=== PATIENT | female | born 1945 | race Caucasian/White ===

== ENCOUNTER 2018-05-26 13:06 | Outpatient (REF) | payer MEDICARE, MEDICAID, SELFPAY ==
[2018-05-26 20:35] LABS: Abs Immature Grans 0.02 k/cumm (0.0-0.09); Absolute Basophil Count 0.05 k/cumm (0.0-0.2); Absolute Eosinophil Count 0.09 k/cumm (0.0-0.7); Absolute Lymphocyte Count 1.94 k/cumm (1.2-3.4); Absolute Monocyte Count 0.74 k/cumm (0.11-0.7); Absolute Neutrophil Count 5.74 k/cumm (1.2-6.7); Basophils % 0.6; HCT 35.9 % (36.0-46.0); HGB 11.4 g/dL (12.0-15.5); Immature Grans % 0.2; Lymphocytes % 22.6; Mean Corp. HGB Concentration 31.8 g/dL (32.0-36.0); Mean Platelet Volume 11.7 fL (8.0-11.0); Monocytes % 8.6; Platelet Count 260 x1000/uL (130-400); RBC 4.38 m/cumm (4.00-5.20); RBC Distribution Width 14.7 % (11.7-14.6); White Blood Cell Count 8.58 k/cumm (4.4-10.8)
[2018-05-26 20:46] LABS: ALT 21 U/L (12-78); AST 17 U/L (15-37); Albumin 3.4 g/dL (3.4-5.0); Alkaline Phosphatase 89 U/L (46-116); Anion Gap 4.8 mmol/L (3-11); BUN 13 mg/dL (7-18); Bilirubin, Total 0.2 mg/dL (0.2-1.0); C-Reactive Protein 0.05 mg/dL (0.0-0.3); CO2 29.2 mmol/L (21.0-32.0); CREATININE 0.62 mg/dL (0.55-1.02); Chloride 103 mmol/L (98-107); Glucose 82 mg/dL (70-100); Potassium 4.2 mmol/L (3.5-5.1); Sodium 137 mmol/L (136-145); Total Protein 6.6 g/dL (6.4-8.2)
[2018-05-26 22:25] LABS: ESR 18 MM/HR (0-30)
== END 2018-05-26 13:07 ==
LOC: NCHCN 13:06
PROVIDERS: PCP Nurse Practitioner Family; Visit Provider Family Medicine
DX: R50.9 Fever, unspecified (principal); E83.52 Hypercalcemia; Q21.3 Tetralogy of Fallot; R53.83 Other fatigue; Z86.79 Personal history of other diseases of the circulatory system
CPT/HCPCS: 80053; 85652; 85025; 86140

== ENCOUNTER 2018-08-29 20:54 | Outpatient (REF) | payer MEDICARE, MEDICAID, SELFPAY ==
[2018-08-29 22:02] LABS: HCT 36.3 % (36.0-46.0); Mean Corp. HGB Concentration 33.1 g/dL (32.0-36.0); Mean Corpuscular Hemoglobin 26.8 pg (27.0-33.0); Mean Corpuscular Volume 81.2 fL (80-95); Mean Platelet Volume 11.3 fL (8.0-11.0); Platelet Count 265 x1000/uL (130-400); RBC 4.47 m/cumm (4.00-5.20); RBC Distribution Width 14.6 % (11.7-14.6); White Blood Cell Count 8.42 k/cumm (4.4-10.8)
[2018-08-29 22:04] LABS: Anion Gap 6.6 mmol/L (3-11); BUN 18 mg/dL (7-18); CO2 30.4 mmol/L (21.0-32.0); CREATININE 0.69 mg/dL (0.55-1.02); Calcium 11.4 mg/dL (8.5-10.1); Chloride 100 mmol/L (98-107); Glucose 84 mg/dL (70-100); Potassium 3.9 mmol/L (3.5-5.1); Sodium 137 mmol/L (136-145)
== END 2018-08-29 21:14 ==
LOC: NCHCN 20:54
PROVIDERS: PCP Nurse Practitioner Family; Visit Provider Family Medicine
DX: E21.3 Hyperparathyroidism, unspecified (principal); E83.52 Hypercalcemia; D50.9 Iron deficiency anemia, unspecified
CPT/HCPCS: 80048; 85027

== ENCOUNTER 2018-11-16 16:53 | Outpatient (REF) | payer MEDICARE, MEDICAID, SELFPAY ==
[2018-11-16 21:45] LABS: HGB 10.8 g/dL (12.0-15.5); Mean Corp. HGB Concentration 32.7 g/dL (32.0-36.0); Mean Corpuscular Volume 82.5 fL (80-95); Mean Platelet Volume 11.5 fL (8.0-11.0); Platelet Count 238 x1000/uL (130-400); RBC Distribution Width 14.9 % (11.7-14.6); White Blood Cell Count 8.54 k/cumm (4.4-10.8)
[2018-11-16 22:07] LABS: ALT 38 U/L (12-78); AST 18 U/L (15-37); Albumin 3.2 g/dL (3.4-5.0); Alkaline Phosphatase 78 U/L (46-116); Anion Gap 3.8 mmol/L (3-11); BUN 18 mg/dL (7-18); Bilirubin, Total 0.2 mg/dL (0.2-1.0); CO2 32.2 mmol/L (21.0-32.0); CREATININE 0.57 mg/dL (0.55-1.02); Calcium 10.9 mg/dL (8.5-10.1); Chloride 97 mmol/L (98-107); Glucose 88 mg/dL (70-100); Magnesium 1.9 mg/dL (1.8-2.4); Potassium 3.8 mmol/L (3.5-5.1); Sodium 133 mmol/L (136-145); TSH (W/Ref FT4) 1.08 uIU/mL (0.358-3.74); Total Protein 6.3 g/dL (6.4-8.2)
== END 2018-11-16 17:13 ==
LOC: NCHCN 16:53
PROVIDERS: PCP Nurse Practitioner Family; Visit Provider Family Medicine
DX: I49.9 Cardiac arrhythmia, unspecified (principal); R10.9 Unspecified abdominal pain; E21.3 Hyperparathyroidism, unspecified; I10 Essential (primary) hypertension
CPT/HCPCS: 80053; 85027; 83735; 84443

== ENCOUNTER 2018-11-29 18:06 | Outpatient (REF) | payer MEDICARE, MEDICAID, SELFPAY ==
[2018-11-29 22:22] LABS: HCT 32.8 % (36.0-46.0); HGB 10.7 g/dL (12.0-15.5); Mean Corp. HGB Concentration 32.6 g/dL (32.0-36.0); Mean Corpuscular Hemoglobin 26.3 pg (27.0-33.0); Mean Corpuscular Volume 80.6 fL (80-95); Mean Platelet Volume 10.9 fL (8.0-11.0); Platelet Count 259 x1000/uL (130-400); RBC 4.07 m/cumm (4.00-5.20); RBC Distribution Width 14.3 % (11.7-14.6); Reticulocyte 1.7 % (0.5-2.4); White Blood Cell Count 9.62 k/cumm (4.4-10.8)
[2018-11-29 22:56] LABS: Ferritin 15 ng/mL (8-388); Vitamin B12 1450 pg/mL (193-986)
[2018-11-29 23:10] LABS: Iron 31 ug/dL (50-175); Total Iron Binding Capacity 392 ug/dL (250-450); Transferrin Sat 8 % (15-50)
[2018-11-30 06:42] LABS: Vitamin D 25 Total 39.8 ng/ml (30-100)
== END 2018-11-29 18:26 ==
LOC: NCHCN 18:06
PROVIDERS: PCP Nurse Practitioner Family; Visit Provider Family Medicine
DX: D50.9 Iron deficiency anemia, unspecified (principal); E55.9 Vitamin D deficiency, unspecified; E53.8 Deficiency of other specified B group vitamins
CPT/HCPCS: 82306; 85027; 82607; 82728; 83540; 83550; 85045

== ENCOUNTER 2019-02-06 12:09 | Outpatient (REF) | payer MEDICARE, MEDICAID, SELFPAY ==
[2019-02-06 21:53] LABS: HCT 37.2 % (36.0-46.0); Mean Corp. HGB Concentration 32.3 g/dL (32.0-36.0); Mean Corpuscular Hemoglobin 26.8 pg (27.0-33.0); Mean Platelet Volume 12.3 fL (8.0-11.0); Platelet Count 244 x1000/uL (130-400); RBC 4.48 m/cumm (4.00-5.20); RBC Distribution Width 15.7 % (11.7-14.6); White Blood Cell Count 7.89 k/cumm (4.4-10.8)
[2019-02-06 21:58] LABS: Iron 37 ug/dL (50-175); Total Iron Binding Capacity 369 ug/dL (250-450); Transferrin Sat 10 % (15-50)
[2019-02-06 22:06] LABS: Anion Gap 6.4 mmol/L (3-11); BUN 15 mg/dL (7-18); CO2 31.6 mmol/L (21.0-32.0); Calcium 11.2 mg/dL (8.5-10.1); Chloride 102 mmol/L (98-107); Ferritin 23 ng/mL (8-388); Glucose 79 mg/dL (70-100); Potassium 3.9 mmol/L (3.5-5.1); Sodium 140 mmol/L (136-145)
[2019-02-08 05:10] LABS: Vitamin D 25 Total 46.7 ng/ml (30-100)
[2019-02-08 10:06] LABS: Parathyroid Hormone,Intact 107 pg/ml (19-88)
== END 2019-02-06 12:29 ==
LOC: NCHCN 12:09
PROVIDERS: PCP Nurse Practitioner Family; Visit Provider Family Medicine
DX: D50.9 Iron deficiency anemia, unspecified (principal); E55.9 Vitamin D deficiency, unspecified; I10 Essential (primary) hypertension; E21.3 Hyperparathyroidism, unspecified
CPT/HCPCS: 80048; 82306; 85027; 82728; 83540; 83550; 83970

== ENCOUNTER 2019-02-13 13:00 | Outpatient (REF) | payer MEDICARE, MEDICAID, SELFPAY ==
[2019-02-13 22:19] LABS: Anion Gap 4.3 mmol/L (3-11); BUN 14 mg/dL (7-18); CO2 31.7 mmol/L (21.0-32.0); Calcium 11.2 mg/dL (8.5-10.1); Chloride 102 mmol/L (98-107); Glucose 83 mg/dL (70-100); Potassium 3.9 mmol/L (3.5-5.1); Sodium 138 mmol/L (136-145)
== END 2019-02-13 13:20 ==
LOC: NCHCN 13:00
PROVIDERS: PCP Nurse Practitioner Family; Visit Provider Family Medicine
DX: I10 Essential (primary) hypertension (principal)
CPT/HCPCS: 80048

== ENCOUNTER 2019-03-06 15:12 | Outpatient (REF) | payer MEDICARE, MEDICAID, SELFPAY ==
[2019-03-06 22:21] LABS: Anion Gap 5.5 mmol/L (3-11); BUN 11 mg/dL (7-18); CO2 30.5 mmol/L (21.0-32.0); CREATININE 0.61 mg/dL (0.55-1.02); Calcium 11.4 mg/dL (8.5-10.1); Chloride 102 mmol/L (98-107); Glucose 103 mg/dL (70-100); Sodium 138 mmol/L (136-145)
[2019-03-08 09:56] LABS: Prolactin 20.1 ng/ml
== END 2019-03-06 15:32 ==
LOC: NCHCN 15:12
PROVIDERS: PCP Nurse Practitioner Family; Visit Provider Family Medicine
DX: D35.2 Benign neoplasm of pituitary gland (principal); E83.52 Hypercalcemia; R42 Dizziness and giddiness
CPT/HCPCS: 80048; 84146

== ENCOUNTER 2019-04-25 14:54 | Outpatient (REF) | payer MEDICARE, MEDICAID, SELFPAY ==
[2019-04-25 21:50] LABS: Anion Gap 8.1 mmol/L (3-11); BUN 15 mg/dL (7-18); CO2 28.9 mmol/L (21.0-32.0); CREATININE 0.64 mg/dL (0.55-1.02); Calcium 10.7 mg/dL (8.5-10.1); Chloride 102 mmol/L (98-107); Glucose 96 mg/dL (70-100); Potassium 3.4 mmol/L (3.5-5.1); Sodium 139 mmol/L (136-145)
[2019-04-27 10:12] LABS: Parathyroid Hormone,Intact 125 pg/ml (19-88)
== END 2019-04-25 15:14 ==
LOC: NCHCN 14:54
PROVIDERS: PCP Nurse Practitioner Family; Visit Provider Family Medicine
DX: I10 Essential (primary) hypertension (principal); E21.3 Hyperparathyroidism, unspecified; E83.52 Hypercalcemia
CPT/HCPCS: 80048; 83970

== ENCOUNTER 2019-05-08 10:27 | Outpatient (REF) | payer MEDICARE, MEDICAID, SELFPAY ==
[2019-05-08 20:45] LABS: Potassium 4.9 mmol/L (3.5-5.1)
== END 2019-05-08 10:47 ==
LOC: NCHCN 10:27
PROVIDERS: PCP Nurse Practitioner Family; Visit Provider Family Medicine
DX: I10 Essential (primary) hypertension (principal)
CPT/HCPCS: 84132

== ENCOUNTER 2019-07-27 14:34 | Outpatient (REF) | payer MEDICARE, MEDICAID, SELFPAY ==
[2019-07-27 21:26] LABS: ALT 22 U/L (14-59); AST 14 U/L (15-37); Albumin 3.4 g/dL (3.4-5.0); Alkaline Phosphatase 101 U/L (46-116); Anion Gap 5.8 mmol/L (3-11); BUN 14 mg/dL (7-18); Bilirubin, Total 0.2 mg/dL (0.2-1.0); CO2 31.2 mmol/L (21.0-32.0); CREATININE 0.67 mg/dL (0.55-1.02); Calcium 10.8 mg/dL (8.5-10.1); Chloride 102 mmol/L (98-107); Glucose 116 mg/dL (70-100); Potassium 3.8 mmol/L (3.5-5.1); Sodium 139 mmol/L (136-145); Total Protein 6.5 g/dL (6.4-8.2)
[2019-07-30 13:54] LABS: Parathyroid Hormone,Intact 194 pg/ml (19-88)
== END 2019-07-27 14:54 ==
LOC: NCHCN 14:34
PROVIDERS: PCP Nurse Practitioner Family; Visit Provider Family Medicine
DX: I10 Essential (primary) hypertension (principal); E21.3 Hyperparathyroidism, unspecified; E88.09 Other disorders of plasma-protein metabolism, not elsewhere classified
CPT/HCPCS: 80053; 83970

== ENCOUNTER 2020-01-18 21:07 | Outpatient (REF) | payer MEDICARE, MEDICAID, SELFPAY ==
[2020-01-18 21:22] LABS: Anion Gap 6.3 mmol/L (3-11); BUN 12 mg/dL (7-18); CO2 29.7 mmol/L (21.0-32.0); CREATININE 0.78 mg/dL (0.55-1.02); Calcium 9.8 mg/dL (8.5-10.1); Chloride 100 mmol/L (98-107); Glucose 94 mg/dL (74-106); Potassium 3.6 mmol/L (3.5-5.1); Sodium 136 mmol/L (136-145)
[2020-01-21 05:59] LABS: Vitamin D 25 Total 38.2 ng/ml (30-100)
[2020-01-21 11:02] LABS: Parathyroid Hormone,Intact 53 pg/mL (19-88)
== END 2020-01-18 21:27 ==
LOC: NCHCN 21:07
PROVIDERS: PCP Family Medicine; Visit Provider Family Medicine
DX: I10 Essential (primary) hypertension (principal); E83.52 Hypercalcemia; E21.3 Hyperparathyroidism, unspecified; R42 Dizziness and giddiness; H61.22 Impacted cerumen, left ear
CPT/HCPCS: 80048; 82306; 83970

== ENCOUNTER 2020-03-31 14:50 | Outpatient (REF) | payer MEDICARE, MEDICAID, SELFPAY ==
[2020-03-31 22:45] LABS: HCT 34.3 % (36.0-46.0); HGB 11.1 g/dL (12.0-15.5); Mean Corp. HGB Concentration 32.4 g/dL (32.0-36.0); Mean Corpuscular Hemoglobin 27.4 pg (27.0-33.0); Mean Corpuscular Volume 84.7 fL (80-95); Mean Platelet Volume 11.6 fL (8.0-11.0); Platelet Count 209 x1000/uL (130-400); RBC 4.05 m/cumm (4.00-5.20); RBC Distribution Width 14.1 % (11.7-14.6); White Blood Cell Count 7.47 k/cumm (4.4-10.8)
[2020-03-31 22:56] LABS: Iron 44 ug/dL (50-170); Total Iron Binding Capacity 286 ug/dL (250-450); Transferrin Sat 15 % (15-50)
[2020-03-31 23:06] LABS: BUN 15 mg/dL (7-18); CREATININE 0.68 mg/dL (0.55-1.02); Ferritin 38 ng/mL (8-252); TSH (W/Ref FT4) 0.83 uIU/mL (0.36-3.74)
[2020-04-01 17:21] LABS: C-Reactive Protein 0.06 mg/dL (0.0-0.3)
== END 2020-03-31 15:10 ==
LOC: NCHCN 14:50
PROVIDERS: PCP Family Medicine; Visit Provider Family Medicine
DX: D50.9 Iron deficiency anemia, unspecified (principal); R53.83 Other fatigue; R42 Dizziness and giddiness; R10.9 Unspecified abdominal pain; I10 Essential (primary) hypertension
CPT/HCPCS: 84520; 85027; 82565; 82728; 83540; 83550; 84443; 86140

== ENCOUNTER 2020-07-17 21:32 | Outpatient (REF) | payer MEDICARE, MEDICAID, SELFPAY ==
[2020-07-17 21:12] LABS: HCT 33.6 % (36.0-46.0); HGB 10.7 g/dL (11.2-15.7); MCH 27.9 pg (27.0-33.0); MCHC 31.8 % (32.0-36.0); MCV 87.5 fL (80-95); MPV 11.2 fL (8.0-11.0); Platelet Count 196 10^3/uL (130-400); RBC 3.84 10^6/uL (3.93-5.22); RDW 14.2 % (11.7-14.6); RDW-SD 45.6 fL; WBC 6.78 10^3/uL (4.4-10.8)
[2020-07-17 21:24] LABS: Iron 69 ug/dL (50-170)
[2020-07-17 21:50] LABS: ALT 13 U/L (14-59); AST 11 U/L (15-37); Albumin 3.1 g/dL (3.4-5.0); Alkaline Phosphatase 68 U/L (46-116); BUN 16 mg/dL (7-18); Bilirubin, Total 0.3 mg/dL (0.2-1.0); Calcium 10.8 mg/dL (8.5-10.1); Chloride 103 mmol/L (98-107); Ferritin 33 ng/mL (8-252); Folate 8.5 ng/mL (8.6-20.0); Glucose 94 mg/dL (74-106); Potassium 3.5 mmol/L (3.5-5.1); Sodium 138 mmol/L (136-145); TSH (W/Ref FT4) 0.61 uIU/mL (0.36-3.74); Vitamin B12 1770 pg/mL (193-986)
[2020-07-21 10:04] LABS: Lyme Ab w Rflx to Lyme Confirm Negative (Negative)
== END 2020-07-17 21:52 ==
LOC: NCHCN 21:32
PROVIDERS: PCP Family Medicine; Visit Provider Family Medicine
DX: E21.3 Hyperparathyroidism, unspecified (principal); I10 Essential (primary) hypertension; E88.09 Other disorders of plasma-protein metabolism, not elsewhere classified; E83.52 Hypercalcemia; R42 Dizziness and giddiness
CPT/HCPCS: 80053; 85027; 82607; 82728; 82746; 83540; 84443; 86618

== ENCOUNTER 2020-08-14 13:37 | Outpatient (REF) | payer MEDICARE, MEDICAID, SELFPAY ==
[2020-08-14 21:31] LABS: Anion Gap 4.1 mmol/L (3-11); BUN 17 mg/dL (7-18); CO2 31.9 mmol/L (21.0-32.0); CREATININE 0.76 mg/dL (0.55-1.02); Calcium 11.1 mg/dL (8.5-10.1); Chloride 101 mmol/L (98-107); Glucose 74 mg/dL (74-106); PHOSPHORUS 3.7 mg/dL (2.6-4.7); Potassium 4.3 mmol/L (3.5-5.1); Sodium 137 mmol/L (136-145)
[2020-08-28 16:24] LABS: Parathyroid Hormone,Intact 66 pg/mL (15-65)
== END 2020-08-14 13:57 ==
LOC: NCHCN 13:37
PROVIDERS: PCP Family Medicine; Visit Provider Family Medicine
DX: E83.52 Hypercalcemia; Z99.2 Dependence on renal dialysis
CPT/HCPCS: 80048; 83970; 84100

== ENCOUNTER 2020-09-08 21:08 | Outpatient (REF) | payer MEDICARE, MEDICAID, SELFPAY ==
[2020-09-08 21:44] LABS: Anion Gap 1.5 mmol/L (3-11); BUN 19 mg/dL (7-18); CO2 35.5 mmol/L (21.0-32.0); CREATININE 0.79 mg/dL (0.55-1.02); Calcium 10.8 mg/dL (8.5-10.1); Chloride 101 mmol/L (98-107); Glucose 82 mg/dL (74-106); Potassium 3.9 mmol/L (3.5-5.1); Sodium 138 mmol/L (136-145)
--- NOTE | 2020-09-22 13:06 | NS.NUTBLAN_ITS ---
Date of service: 09/22/20 Time of Service: 13:06 Nutritional Consult ASSESSMENT: Received nutritional consult to treat and evaluate bacterial overgrowth syndrome and abdominal distension with constipation. Ms. Quintero is unwilling to come to office, therefore, we spoke on the phone as she was unable to do tele health visit. Ms. Quintero reports weight stability but continue to have abdominal distension with constipation. She takes metamucil daily as prescribed and reports no constipation. She follows a vegetarian diet and has done so for many years. Medical chart indicates duodenal diverticulum. This is second time I have had pleasure of talking/consulting with Ms. Quintero. She reports she is 4'1 at 95 lbs. BMI wnl. NUTRITIONAL DIAGNOSIS: Bacterial over growth syndrome, with abdominal distension and constipation. INTERVENTION: Educated Ms. Quintero on importance of removing insoluable fiber in her diet and replace with soluble fiber. She is agreeable to stop eating beans and to replace this with tofu or tempeh. We also discussed importance of probiotics, especially eating 2 yogurts daily along with metamucil. Ms. Quintero reports her distention has become worse with increased anxiety with covid pandemic. We also discussed importance of stress reducing activities such as deep breathing, walking and talking to friends/family. I encouraged Ms. Quintero to talk to her PCP about her anxiety and discuss how it may affect her digestion. At this time, I believe the digestive issues are related to her high insoluable fiber diet and increased anxiety. A reduction in insoluable fiber and an increase in stress relieving activities may help improve digestions. Since her weight remains stable, I do not think she is at nutritional risk at this time. MONITORING AND EVALUATION: Ms. Quintero will weigh herself weekly and follow up with sign writer letterer or painter if loses more than 3 lbs Ms. Quintero will follow up with sign writer letterer or painter if she needs additional information/guidance Time Spent in Nutritional Counseling and Treatment: 20 min
== END 2020-09-08 21:28 ==
LOC: NCHCN 21:08
PROVIDERS: PCP Family Medicine; Visit Provider Family Medicine
DX: I10 Essential (primary) hypertension (principal)
CPT/HCPCS: 80048

== ENCOUNTER 2020-11-11 16:06 | Outpatient (REF) | payer MEDICARE, MEDICAID, SELFPAY ==
[2020-11-11 21:48] LABS: HCT 29.4 % (36.0-46.0); HGB 9.5 g/dL (11.2-15.7); MCH 29.4 pg (27.0-33.0); MCHC 32.3 % (32.0-36.0); MPV 11.6 fL (8.0-11.0); Platelet Count 198 10^3/uL (130-400); RBC 3.23 10^6/uL (3.93-5.22); RDW 13.2 % (11.7-14.6); WBC 8.27 10^3/uL (4.4-10.8)
[2020-11-11 22:17] LABS: ALT 19 U/L (14-59); AST 13 U/L (15-37); Albumin 3.3 g/dL (3.4-5.0); Alkaline Phosphatase 76 U/L (46-116); Anion Gap -0.6 mmol/L (3-11); BUN 17 mg/dL (7-18); Bilirubin, Total 0.2 mg/dL (0.2-1.0); CO2 34.6 mmol/L (21.0-32.0); CREATININE 0.8 mg/dL (0.55-1.02); Calcium 10.5 mg/dL (8.5-10.1); Chloride 101 mmol/L (98-107); Ferritin 32 ng/mL (8-252); Glucose 101 mg/dL (74-106); Potassium 4.1 mmol/L (3.5-5.1); Sodium 135 mmol/L (136-145); Total Protein 6.2 g/dL (6.4-8.2)
[2020-11-11 22:32] LABS: Folate > 20.0 ng/mL (8.6-20.0)
[2020-11-13 09:29] LABS: Parathyroid Hormone,Intact 107 pg/mL (19-88)
== END 2020-11-11 16:07 | disposition home or self-care (01) ==
LOC: NCHCN 16:06
PROVIDERS: PCP Family Medicine; Visit Provider Family Medicine
DX: D50.9 Iron deficiency anemia, unspecified (principal); I10 Essential (primary) hypertension; E83.52 Hypercalcemia; E21.3 Hyperparathyroidism, unspecified; D52.9 Folate deficiency anemia, unspecified; E88.09 Other disorders of plasma-protein metabolism, not elsewhere classified
CPT/HCPCS: 80053; 85027; 82728; 82746; 83970

== ENCOUNTER 2020-12-04 20:52 | Outpatient (REF) | payer MEDICARE, MEDICAID, SELFPAY ==
[2020-12-04 21:44] LABS: Abs Immature Grans 0.03 10^3/uL (0.0-0.06); Absolute Basophil Count 0.07 10^3/uL (0.0-0.2); Absolute Lymphocyte Count 1.56 10^3/uL (1.2-3.4); Absolute Monocyte Count 0.89 10^3/uL (0.1-0.8); Absolute Neutrophil Count 7.77 10^3/uL (1.2-6.7); Basophils % 0.7; HCT 29.7 % (36.0-46.0); HGB 9.6 g/dL (11.2-15.7); Immature Grans % 0.3; Lymphocytes % 15.1; MCHC 32.3 % (32.0-36.0); MCV 89.7 fL (80-95); MPV 11.3 fL (8.0-11.0); Monocytes % 8.6; Neutrophils % 75.3; Nucleated RBC 0 %; Platelet Count 221 10^3/uL (130-400); RBC 3.31 10^6/uL (3.93-5.22); RDW 12.7 % (11.7-14.6); RDW-SD 41.7 fL; WBC 10.32 10^3/uL (4.4-10.8)
[2020-12-04 21:57] LABS: ALT 19 U/L (14-59); AST 12 U/L (15-37); Albumin 3.3 g/dL (3.4-5.0); Alkaline Phosphatase 74 U/L (46-116); Anion Gap 4.8 mmol/L (3-11); BUN 19 mg/dL (7-18); Bilirubin, Total 0.2 mg/dL (0.2-1.0); CO2 32.2 mmol/L (21.0-32.0); CREATININE 0.8 mg/dL (0.55-1.02); Calcium 10.6 mg/dL (8.5-10.1); Chloride 101 mmol/L (98-107); Glucose 118 mg/dL (74-106); Magnesium 2.1 mg/dL (1.8-2.4); Potassium 3.8 mmol/L (3.5-5.1); Sodium 138 mmol/L (136-145); Total Protein 6.2 g/dL (6.4-8.2)
[2020-12-04 22:18] LABS: Vitamin D 25 Total 44.7 ng/ml (30-100)
[2020-12-04 22:43] LABS: Bilirubin, Direct 0.1 mg/dL (0.0-0.2)
[2020-12-08 09:38] LABS: Parathyroid Hormone,Intact 103 pg/mL (19-88)
== END 2020-12-04 20:53 | disposition home or self-care (01) ==
LOC: NCHCN 20:52
PROVIDERS: PCP Family Medicine; Visit Provider Family Medicine
DX: E88.09 Other disorders of plasma-protein metabolism, not elsewhere classified (principal); I10 Essential (primary) hypertension; R42 Dizziness and giddiness; R14.0 Abdominal distension (gaseous); E83.50 Unspecified disorder of calcium metabolism
CPT/HCPCS: 80053; 80076; 82306; 83735; 83970; 85025

== ENCOUNTER 2021-01-27 23:39 | Outpatient (REF) | payer MEDICARE, MEDICAID, SELFPAY ==
[2021-01-27 21:05] LABS: HCT 29.6 % (36.0-46.0); HGB 9.6 g/dL (11.2-15.7); MCH 28.7 pg (27.0-33.0); MCHC 32.4 % (32.0-36.0); MCV 88.6 fL (80-95); MPV 11.4 fL (8.0-11.0); Platelet Count 199 10^3/uL (130-400); RBC 3.34 10^6/uL (3.93-5.22); RDW 14.2 % (11.7-14.6); RDW-SD 46.3 fL; WBC 8.62 10^3/uL (4.4-10.8)
[2021-01-27 21:17] LABS: Iron 34 ug/dL (50-170)
[2021-01-27 21:30] LABS: Anion Gap 4.3 mmol/L (3-11); BUN 25 mg/dL (7-18); CO2 33.7 mmol/L (21.0-32.0); CREATININE 0.8 mg/dL (0.55-1.02); Calcium 9.6 mg/dL (8.5-10.1); Chloride 104 mmol/L (98-107); Ferritin 25 ng/mL (8-252); Glucose 96 mg/dL (74-106); Sodium 142 mmol/L (136-145)
[2021-01-29 08:40] LABS: Parathyroid Hormone,Intact 80 pg/mL (19-88)
== END 2021-01-27 23:40 | disposition home or self-care (01) ==
LOC: NCHCN 23:39
PROVIDERS: PCP Family Medicine; Visit Provider Family Medicine
DX: D64.9 Anemia, unspecified (principal); E21.3 Hyperparathyroidism, unspecified; I10 Essential (primary) hypertension
CPT/HCPCS: 80048; 85027; 82728; 83540; 83970

== ENCOUNTER 2021-06-05 14:54 | Outpatient (REF) | payer MEDICARE, MEDICAID, SELFPAY ==
[2021-06-05 21:37] LABS: Abs Immature Grans 0.03 10^3/uL (0.0-0.06); Absolute Basophil Count 0.07 10^3/uL (0.0-0.2); Absolute Eosinophil Count 0.01 10^3/uL (0.0-0.7); Absolute Lymphocyte Count 1.48 10^3/uL (1.2-3.4); Absolute Monocyte Count 0.63 10^3/uL (0.1-0.8); Basophils % 0.8; Eosinophils % 0.1; HCT 29.3 % (36.0-46.0); HGB 9.3 g/dL (11.2-15.7); Immature Grans % 0.4; Lymphocytes % 17.6; MCH 27.8 pg (27.0-33.0); MCHC 31.7 % (32.0-36.0); MCV 87.5 fL (80-95); MPV 10.8 fL (8.0-11.0); Monocytes % 7.5; Neutrophils % 73.6; Nucleated RBC 0 %; Platelet Count 221 10^3/uL (130-400); RBC 3.35 10^6/uL (3.93-5.22); RDW 13.5 % (11.7-14.6); RDW-SD 43.4 fL; WBC 8.42 10^3/uL (4.4-10.8)
[2021-06-05 21:47] LABS: Iron 31 ug/dL (50-170)
[2021-06-05 22:02] LABS: ALT 31 U/L (14-59); AST 10 U/L (15-37); Albumin 3.3 g/dL (3.4-5.0); Alkaline Phosphatase 78 U/L (46-116); Anion Gap 5.8 mmol/L (3-11); BUN 16 mg/dL (7-18); Bilirubin, Total 0.3 mg/dL (0.2-1.0); CO2 31.2 mmol/L (21.0-32.0); CREATININE 0.9 mg/dL (0.55-1.02); Calcium 9.9 mg/dL (8.5-10.1); Chloride 101 mmol/L (98-107); Ferritin 43 ng/mL (8-252); Glucose 116 mg/dL (74-106); Potassium 4.2 mmol/L (3.5-5.1); Sodium 138 mmol/L (136-145); Total Protein 6.1 g/dL (6.4-8.2)
[2021-06-08 11:50] LABS: Parathyroid Hormone,Intact 61 pg/mL (19-88)
== END 2021-06-05 14:55 | disposition home or self-care (01) ==
LOC: NCHCN 14:54
PROVIDERS: PCP Family Medicine; Referring Provider Family Medicine; Visit Provider Family Medicine
DX: D64.9 Anemia, unspecified (principal); E88.09 Other disorders of plasma-protein metabolism, not elsewhere classified; I10 Essential (primary) hypertension; E83.52 Hypercalcemia
CPT/HCPCS: 80053; 82728; 83540; 83970; 85025

== ENCOUNTER 2021-09-01 12:41 | Outpatient (REF) | payer MEDICARE, MEDICAID, SELFPAY ==
[2021-09-01 22:10] LABS: Abs Immature Grans 0.02 10^3/uL (0.0-0.06); Absolute Basophil Count 0.06 10^3/uL (0.0-0.2); Absolute Eosinophil Count 0.03 10^3/uL (0.0-0.7); Absolute Lymphocyte Count 1.45 10^3/uL (1.2-3.4); Absolute Monocyte Count 0.59 10^3/uL (0.1-0.8); Basophils % 0.9; Eosinophils % 0.5; HCT 30.7 % (36.0-46.0); HGB 9.5 g/dL (11.2-15.7); Immature Grans % 0.3; Lymphocytes % 22.8; MCH 27.5 pg (27.0-33.0); MCHC 30.9 % (32.0-36.0); MPV 10.4 fL (8.0-11.0); Monocytes % 9.3; Neutrophils % 66.2; Nucleated RBC 0 %; Platelet Count 247 10^3/uL (130-400); RBC 3.45 10^6/uL (3.93-5.22); RDW 13.7 % (11.7-14.6); WBC 6.35 10^3/uL (4.4-10.8)
[2021-09-01 22:51] LABS: ALT 14 U/L (14-59); AST 10 U/L (15-37); Albumin 3.3 g/dL (3.4-5.0); Alkaline Phosphatase 82 U/L (46-116); Anion Gap 4.5 mmol/L (3-11); BUN 13 mg/dL (7-18); Bilirubin, Total 0.3 mg/dL (0.2-1.0); CO2 32.5 mmol/L (21.0-32.0); CREATININE 0.8 mg/dL (0.55-1.02); Calcium 9.2 mg/dL (8.5-10.1); Chloride 102 mmol/L (98-107); Glucose 86 mg/dL (74-106); Sodium 139 mmol/L (136-145); Total Protein 6.1 g/dL (6.4-8.2)
== END 2021-09-01 12:42 | disposition home or self-care (01) ==
LOC: NCHCN 12:41
PROVIDERS: PCP Family Medicine; Visit Provider Family Medicine
DX: D64.9 Anemia, unspecified (principal); R10.9 Unspecified abdominal pain
CPT/HCPCS: 80053; 85025

== ENCOUNTER 2021-11-02 12:13 | Outpatient (REF) | payer MEDICARE, MEDICAID, SELFPAY ==
[2021-11-02 16:24] LABS: BUN 13 mg/dL (7-18); CREATININE 0.9 mg/dL (0.55-1.02)
== END 2021-11-02 12:14 | disposition home or self-care (01) ==
LOC: NCHCN 12:13
PROVIDERS: PCP Family Medicine; Visit Provider Internal Medicine Gastroenterology
DX: Z01.812 Encounter for preprocedural laboratory examination (principal)
CPT/HCPCS: 84520; 82565

== ENCOUNTER 2021-12-18 16:45 | Outpatient (REF) | payer MEDICARE, MEDICAID, SELFPAY ==
[2021-12-18 21:14] LABS: Abs Immature Grans 0.02 10^3/uL (0.0-0.06); Absolute Basophil Count 0.04 10^3/uL (0.0-0.2); Absolute Eosinophil Count 0.02 10^3/uL (0.0-0.7); Absolute Lymphocyte Count 1.62 10^3/uL (1.2-3.4); Absolute Monocyte Count 0.47 10^3/uL (0.1-0.8); Absolute Neutrophil Count 3.53 10^3/uL (1.2-6.7); Basophils % 0.7; Eosinophils % 0.4; HCT 29.6 % (36.0-46.0); HGB 9.4 g/dL (11.2-15.7); Immature Grans % 0.4; Lymphocytes % 28.4; MCH 26.8 pg (27.0-33.0); MCHC 31.8 % (32.0-36.0); MCV 84.3 fL (80-95); MPV 11.1 fL (8.0-11.0); Monocytes % 8.2; Neutrophils % 61.9; Nucleated RBC 0 %; Platelet Count 161 10^3/uL (130-400); RBC 3.51 10^6/uL (3.93-5.22); RDW 15.4 % (11.7-14.6); RDW-SD 47.4 fL
[2021-12-18 21:16] LABS: Iron 54 ug/dL (50-170)
[2021-12-18 21:30] LABS: ALT 31 U/L (14-59); AST 26 U/L (15-37); Albumin 2.8 g/dL (3.4-5.0); Alkaline Phosphatase 76 U/L (46-116); BUN 9 mg/dL (7-18); Bilirubin, Total 0.2 mg/dL (0.2-1.0); CREATININE 0.9 mg/dL (0.55-1.02); Calcium 9.9 mg/dL (8.5-10.1); Chloride 104 mmol/L (98-107); Ferritin 34 ng/mL (8-252); Glucose 111 mg/dL (74-106); Potassium 3.8 mmol/L (3.5-5.1); Sodium 138 mmol/L (136-145); TSH (W/Ref FT4) 0.62 uIU/mL (0.36-3.74); Total Protein 5.4 g/dL (6.4-8.2)
[2021-12-21 10:22] LABS: Parathyroid Hormone,Intact 109 pg/mL (19-88)
== END 2021-12-18 16:46 | disposition home or self-care (01) ==
LOC: NCHCN 16:45
PROVIDERS: PCP Family Medicine; Visit Provider Family Medicine
DX: R25.1 Tremor, unspecified (principal); I10 Essential (primary) hypertension; R53.83 Other fatigue; R42 Dizziness and giddiness; D64.9 Anemia, unspecified
CPT/HCPCS: 80053; 82728; 83540; 83970; 84443; 85025

== ENCOUNTER 2021-12-29 14:42 | Outpatient (REF) | payer MEDICARE, MEDICAID, SELFPAY ==
[2021-12-29 16:54] LABS: COMMENT (LAB VIEW ONLY) 99.03 mg/dL; PROTEIN 36.8 mg/dL; Prot/Crea Ur Ratio 0.37
== END 2021-12-29 14:43 | disposition home or self-care (01) ==
LOC: NCHCN 14:42
PROVIDERS: PCP Family Medicine; Visit Provider Family Medicine
DX: R60.0 Localized edema (principal)
CPT/HCPCS: 82565; 84156

== ENCOUNTER 2022-01-06 15:03 | Outpatient (REF) | payer MEDICARE, MEDICAID, SELFPAY ==
[2022-01-06 17:05] LABS: Anion Gap 3.4 mmol/L (3-11); BUN 14 mg/dL (7-18); CO2 33.6 mmol/L (21.0-32.0); CREATININE 0.7 mg/dL (0.55-1.02); Calcium 10.1 mg/dL (8.5-10.1); Chloride 104 mmol/L (98-107); Glucose 113 mg/dL (74-106); Potassium 3.7 mmol/L (3.5-5.1); Sodium 141 mmol/L (136-145)
== END 2022-01-06 15:04 | disposition home or self-care (01) ==
LOC: NCHCN 15:03
PROVIDERS: PCP Family Medicine; Visit Provider Registered Nurse
DX: R06.09 Other forms of dyspnea (principal); R60.0 Localized edema
CPT/HCPCS: 80048

== ENCOUNTER 2022-01-14 16:47 | Outpatient (REF) | payer MEDICARE, MEDICAID, SELFPAY ==
[2022-01-14 21:14] LABS: ALT 18 U/L (14-59); AST 14 U/L (15-37); Albumin 2.5 g/dL (3.4-5.0); Alkaline Phosphatase 102 U/L (46-116); Anion Gap 4.2 mmol/L (3-11); BUN 13 mg/dL (7-18); Bilirubin, Total 0.2 mg/dL (0.2-1.0); CO2 30.8 mmol/L (21.0-32.0); CREATININE 0.8 mg/dL (0.55-1.02); Calcium 10.2 mg/dL (8.5-10.1); Chloride 103 mmol/L (98-107); Glucose 101 mg/dL (74-106); Potassium 3.3 mmol/L (3.5-5.1); Sodium 138 mmol/L (136-145); Total Protein 5.5 g/dL (6.4-8.2)
== END 2022-01-14 16:48 | disposition home or self-care (01) ==
LOC: NCHCN 16:47
PROVIDERS: PCP Family Medicine; Visit Provider Family Medicine
DX: R60.0 Localized edema (principal)
CPT/HCPCS: 80053

== ENCOUNTER 2022-04-01 20:59 | Outpatient (REF) | payer MEDICARE, MEDICAID, SELFPAY ==
[2022-04-01 21:47] LABS: HCT 27.1 % (36.0-46.0); HGB 8.1 g/dL (11.2-15.7); MCH 23.8 pg (27.0-33.0); MCHC 29.9 % (32.0-36.0); MCV 80 fL (80-95); MPV 10.8 fL (8.0-11.0); Platelet Count 321 10^3/uL (130-400); RDW 14.9 % (11.7-14.6); RDW-SD 43.4 fL; WBC 7.92 10^3/uL (4.4-10.8)
[2022-04-01 21:55] LABS: Iron 16 ug/dL (50-170)
[2022-04-01 22:08] LABS: ALT 26 U/L (14-59); AST 26 U/L (15-37); Albumin 2.9 g/dL (3.4-5.0); Alkaline Phosphatase 116 U/L (46-116); Anion Gap 2.6 mmol/L (3-11); BUN 19 mg/dL (7-18); Bilirubin, Total 0.2 mg/dL (0.2-1.0); CO2 32.4 mmol/L (21.0-32.0); CREATININE 0.7 mg/dL (0.55-1.02); Calcium 10.2 mg/dL (8.5-10.1); Chloride 101 mmol/L (98-107); Ferritin 8 ng/mL (8-252); Glucose 105 mg/dL (74-106); Potassium 4.1 mmol/L (3.5-5.1); Sodium 136 mmol/L (136-145); Total Protein 6.1 g/dL (6.4-8.2)
[2022-04-02 19:10] LABS: Parathyroid Hormone,Intact 195 pg/mL (19-88)
== END 2022-04-01 21:00 | disposition home or self-care (01) ==
LOC: NCHCN 20:59
PROVIDERS: PCP Family Medicine; Visit Provider Family Medicine
DX: D64.9 Anemia, unspecified (principal); R06.09 Other forms of dyspnea; R60.0 Localized edema; R10.9 Unspecified abdominal pain; I10 Essential (primary) hypertension; R53.83 Other fatigue; R53.81 Other malaise
CPT/HCPCS: 80053; 85027; 82728; 83540; 83970

== ENCOUNTER 2022-04-19 15:54 | Outpatient (REF) | payer MEDICARE, MEDICAID, SELFPAY ==
[2022-04-19 21:24] LABS: HCT 26.4 % (36.0-46.0); HGB 8.2 g/dL (11.2-15.7)
[2022-04-19 21:39] LABS: Iron 24 ug/dL (50-170); Total Iron Binding Capacity 392 ug/dL (250-450); Transferrin Sat 6 % (15-50)
== END 2022-04-19 15:55 | disposition home or self-care (01) ==
LOC: NCHCN 15:54
PROVIDERS: PCP Family Medicine; Visit Provider Family Medicine
DX: D64.9 Anemia, unspecified (principal); R42 Dizziness and giddiness
CPT/HCPCS: 83540; 83550; 85014; 85018

== ENCOUNTER 2022-08-09 14:55 | Outpatient (REF) | payer MEDICARE, MEDICAID, SELFPAY ==
[2022-08-09 21:58] LABS: HCT 28.8 % (36.0-46.0); HGB 8.5 g/dL (11.2-15.7); MCH 24.6 pg (27.0-33.0); MCHC 29.5 % (32.0-36.0); MCV 84 fL (80-95); MPV 11.1 fL (8.0-11.0); Platelet Count 268 10^3/uL (130-400); RBC 3.45 10^6/uL (3.93-5.22); RDW 16.1 % (11.7-14.6); WBC 8.58 10^3/uL (4.4-10.8)
[2022-08-09 22:38] LABS: Ferritin 9 ng/mL (8-252)
== END 2022-08-09 14:56 | disposition home or self-care (01) ==
LOC: NCHCN 14:55
PROVIDERS: PCP Family Medicine; Visit Provider Family Medicine
DX: D64.9 Anemia, unspecified (principal)
CPT/HCPCS: 85027; 82728